=== PATIENT | female | born 1930 | race Caucasian/White ===

== ENCOUNTER 2017-02-16 14:40 | Inpatient (IN) | payer OTHER ==
[~2017-02-16] VITALS: Ht 154.9 cm; Wt 62.6 kg
[2017-02-16] MEDS ORDERED: IV NS 0.9% 1,000 ML BAG IV ONE ×2 (15:00→17:00)
--- NOTE | 2017-02-16 15:05 | NUR ---
ISABELLA FROM A BOARD AND CARE DT BRITNEY. AT FOR EVAL. NOTED WITH DARK GREEN LIQUID STOOL. FLEXISEAL IN PLACED- PER MD ORDER. IV ACCESS STARTED. BLOOD AND CULTURES DRAWN. SAFETY AND COMFORT MEASURES PROVIDED. WILL MONITOR. Addendum: 02/16/17 at 1727 by CHRIS PT CLEANED, CHANGED AND PLACED ON A NEW DIAPER PER PROTOCOL.
[2017-02-16 15:15] LABS: BASOPHILS % (AUTO) 0.1 % (0.0-2.0); EOSINOPHILS % (AUTO) 0.1 % (0.0-6.0); HEMATOCRIT 46 % (33-45); HEMOGLOBIN 14.8 g/dL (11.5-14.8); LYMPHOCYTES # (AUTO) 0.9 /CMM (0.8-4.8); LYMPHOCYTES % (AUTO) 5.5 % (20.0-44.0); MEAN CORPUSCULAR HEMOGLOBIN 30 PG (26.0-33.0); MEAN CORPUSCULAR HGB CONC 33 g/dl (31.0-36.0); MEAN CORPUSCULAR VOLUME 93 fL (82-100); MONOCYTES # (AUTO) 0.5 /CMM (0.1-1.30); MONOCYTES % (AUTO) 3.5 % (2.0-12.0); NEUTROPHILS # (AUTO) 14.3 /CMM (1.8-8.9); NEUTROPHILS % (AUTO) 90.8 % (43.0-81.0); PLATELET COUNT (AUTO) 367 /CMM (150-450); RDW COEFFICIENT OF VARIATION 14.5 (11.5-15.0); WHITE BLOOD COUNT (AUTO) 15.7 K/uL (4.3-11.0)
--- NOTE | 2017-02-16 15:15 | NUR ---
FAMILY MEMBER AT BS AND UPDATED WITH POC. WITH CODE STATUS UPDATE THAT PT IS DNR. FAMILY HAS NO DOCUMENTS ON HAND.
[2017-02-16 15:26] LABS: INR 1.13 (0.87-1.13); PROTHROMBIN TIME 11.7 SECS (9.5-12.7)
[2017-02-16 15:28] LABS: ALANINE AMINOTRANSFERASE 155 U/L (12-78); ALBUMIN 2.8 g/dL (3.4-5.0); ALKALINE PHOSPHATASE 122 U/L (46-116); ASPARTATE AMINOTRANSFERASE 164 U/L (15-37); BILIRUBIN,DIRECT 0.2 mg/dL (0.0-0.2); BILIRUBIN,TOTAL 0.8 mg/dL (0.2-1.0); CARBON DIOXIDE 19 mmol/L (21-32); CHLORIDE 101 mmol/L (98-107); GLUCOSE 88 mg/dL (74-106); SODIUM SERUM 137 mmol/L (136-145); TOTAL PROTEIN, SERUM 7.7 g/dL (6.4-8.2); UREA NITROGEN, BLOOD 53 mg/dL (7-18)
--- NOTE | 2017-02-16 15:31 | NUR ---
CALLED [facility]EDMAN MICHELLE ROJO IS FAXING PT FACE SHEET AND DNR PAPERWORK TO [facility]
[2017-02-16 15:32] LABS: POTASSIUM 6.4 mmol/L (3.5-5.1)
--- NOTE | 2017-02-16 15:37 | NUR ---
PT TAKEN TO CT.
[2017-02-16 15:45] LABS: BAND % (MANUAL) 48 % (0.0-5.0); LYMPHOCYTES % (MANUAL) 4 % (16-48); MONOCYTES % (MANUAL) 7 % (0-11.0); NEUTROPHILS % (MANUAL) 41 (42-76)
[2017-02-16] MEDS ORDERED: FERR-58 PO (15:47)
[2017-02-16] MEDS ORDERED: ASPI81TA2 PO (15:47)
[2017-02-16] MEDS ORDERED: ALEN70TA45 PO (15:47)
[2017-02-16] MEDS ORDERED: FURO-144 PO (15:47)
[2017-02-16] MEDS ORDERED: CALC1TAB PO (15:47)
[2017-02-16] MEDS ORDERED: BECL8.7A6 IH (15:47)
[2017-02-16] MEDS ORDERED: VENL50TA4 PO (15:47)
[2017-02-16] MEDS ORDERED: RANI150T8 PO (15:47)
[2017-02-16] MEDS ORDERED: LISI40TA4 PO (15:47)
[2017-02-16] MEDS ORDERED: METO25TA20 PO (15:47)
[2017-02-16] MEDS ORDERED: COMBIVENT RESPIMAT IH (15:47)
[2017-02-16] MEDS ORDERED: MULT-1168 PO (15:47)
[2017-02-16] MEDS ORDERED: DOCU-25 PO (15:47)
[2017-02-16] MEDS ORDERED: ATOR40TA PO (15:47)
[2017-02-16] MEDS ORDERED: ISOS10TA2 PO (15:47)
[2017-02-16] MEDS ORDERED: POTA10TA15 PO (15:47)
[2017-02-16] MEDS ORDERED: DEXTROSE 50%-WATER 50 ML DISP.SYRIN IV ONE (16:00)
[2017-02-16] MEDS ORDERED: SODIUM BICARBONATE SYR 50 MEQ/50 ML DISP.SYRIN IV ONE (16:00)
[2017-02-16] MEDS ORDERED: SODIUM POLYSTYRENE SULFONATE 15 G/60 ML BOTTLE RC ONE (16:00)
[2017-02-16] MEDS ORDERED: INSULIN REGULAR, HUMAN 100 UNIT/ML 10 ML VIAL IV ONE (16:00)
[2017-02-16] MEDS ORDERED: ALBUTEROL FS 2.5 MG/3 ML VIAL.NEB NEB ONE (16:00)
[2017-02-16] MEDS ORDERED: SODIUM POLYSTYRENE SULFONATE 15 G/60 ML BOTTLE ONE (16:03)
[2017-02-16] MEDS ORDERED: DEXTROSE 50%-WATER 50 ML DISP.SYRIN ONE (16:03)
[2017-02-16] MEDS ORDERED: INSULIN REGULAR, HUMAN 100 UNIT/ML 10 ML VIAL ONE (16:03)
--- NOTE | 2017-02-16 16:10 | NUR ---
UNBALE TO GET URINE SAMPLE- PT NOTED DRY. FC IN PLACE.
[2017-02-16] MEDS ORDERED: CEFTRIAXONE 1GM BAG (ER ONLY) 50 ML IV ONE ×2 (16:30→16:33)
--- NOTE | 2017-02-16 16:44 | NUR ---
CALLED [facility] FOR DOCTOR CONSULT
--- NOTE | 2017-02-16 16:50 | NUR ---
BUD CALLBACK PT ASSIGNED TO DR KINSEY @ [facility] PHONE NUMBER FOR REPORT: [facility] ETA [phone]
[2017-02-16] MEDS ORDERED: ALBUTEROL FS 2.5 MG/3 ML VIAL.NEB ONE (16:52)
--- NOTE | 2017-02-16 17:27 | NUR ---
REPORT GIVEN TO KARLA NOLEN FOR TELE ROOM 119
[2017-02-16] MEDS ORDERED: IV NS 0.9% 1,000 ML IV PRN ×2 (17:44→18:00)
--- NOTE | 2017-02-16 17:45 | NUR ---
RN ELENITA: got report from ER, PBA/nurse, Dx: AMS, DNR status
[2017-02-16] MEDS ORDERED: Z GUARD REMEDY 2 OZ OINT TP PRN (18:00)
[2017-02-16] MEDS ORDERED: HYDROCODONE/APAP 5/325MG 1 EACH TABLET PO PRN (18:00)
[2017-02-16] MEDS ORDERED: ACETAMINOPHEN 325 MG TABLET PO PRN (18:00)
[2017-02-16] MEDS ORDERED: MAGNESIUM HYDROXIDE 30 ML UDC PO PRN (18:00)
[2017-02-16] MEDS ORDERED: ONDANSETRON HCL/PF 4 MG/2 ML VIAL IVP PRN (18:00)
[2017-02-16] MEDS ORDERED: MAG HYDROX/AL HYDROX/SIMETH 30 ML UDC PO PRN (18:00)
[2017-02-16 18:15] VITALS: BP 99/33
--- NOTE | 2017-02-16 18:20 | NUR ---
RN ELENITA: got pt.from ER, pt.is obtunded, labored breathing, O2 sat. 90%, unable to check O2sat. well/pt.is cold, on 100%O2 NRBM, SR, SBP over 90, pt.family confirmed DNR status
[2017-02-16 18:30] VITALS: BP 148/90
[2017-02-16] MEDS ORDERED: IV NS 0.9% 1,000 ML IV SCH (18:30)
[2017-02-16] MEDS ORDERED: PIPERACILLIN /TAZOBACTAM 4.5 G in IV D5W 50 ML IV SCH (18:30)
--- NOTE | 2017-02-16 18:35 | NUR ---
RN ELENITA: pt.is obtunded, O2 sat. 82-92%, labored, SBP over 100, SR, RR 25-32, paged , will endorse next shift for ABG order?, pt.family confirmed DNR/DNI status
[2017-02-16 18:45] VITALS: BP 101/56
--- NOTE | 2017-02-16 18:45 | NUR ---
RN ELENITA: pt.is with open eyes, but no any tracking reaction, grimacing for pain stimuli, applied 2 more pulsoximetry sensors, low O2sat.82-85%, warmed: 90-92%, started to urinate, diarrhea, flexiseal tube in, needs ABG?, IVF?, MD was paged, max 100% O2 flow, POC needs to be discuss between MD and pt.family, charge nurse was notified
--- NOTE | 2017-02-16 19:00 | NUR ---
RN ELENITA: called back, spoke with charge nurse, pt.daughter, ordered: Ativan 1mg IV q2h prn
--- NOTE | 2017-02-16 19:10 | NUR ---
ELENITA/ABSORPTION PLANT OPERATOR RECEIVED REPORT FROM DAY NURSE, WHO HAD JUST RECEIVED THIS PT FROM ER WITHIN THE LAST 20MINUTES. RN WAS ABLE TO OBTAIN A DNR/DNI ORDER FROM MD, IT IS PT'S ADVANCE DIRECTIVES. ASSUME CARE FROM DAY NURSE NEW ADMISSION.
[2017-02-16] MEDS ORDERED: LORAZEPAM INJ 2 MG/ML VIAL IV PRN (19:30)
--- NOTE | 2017-02-16 19:33 | NUR ---
ELENITA/SENIOR PHYSICAL THERAPIST ABG WAS ORDERED STAT, HER O2 WAS 66% ON NON REBREATHER MASK AT 15 LITERS. ALSO TEMP AT THIS TIME WAS 97.2 AX. IJEOMA BAUER ORDERED TO INCREASE TEMP, SAW THAT LOWER EXTREMITIES WERE MOTTLED. ARMS AND NAIL BEDS WERE PURPLE/BLUE. AT THIS TIME NOTICED THAT A LACTIC ACID REPEAT WAS NOT DONE, ORDERED THIS DUE TO THE FACT LACTIC ACID WAS 9.6 IN ER AND DID NOT APPEAR TO REPEAT LAB. IV FLUIDS THAT WERE ORDERED WERE HUNG UP, NS @150ML/HR. ALSO STATED THE ANTIBIOTICS THAT WERE ORDER.
[2017-02-16] MEDS ORDERED: LORAZEPAM INJ 2 MG/ML VIAL ONE (19:47)
[2017-02-16 20:00] VITALS: BP 101/64
[2017-02-16] MEDS ORDERED: PIPERACILLIN /TAZOBACTAM 2.25 G in IV D5W 50 ML IV SCH (20:00)
--- NOTE | 2017-02-16 20:20 | NUR ---
ELENITA/ELECTRIC CUTTER OPERATOR LACTIC ACID CAME BACK AT 4.7, CHARGE AWARE ALSO UNABLE TO GET ABG. DUE TO POOR CIRCULATION AT THIS TIME. WILL MONITOR THIS PT.
--- NOTE | 2017-02-16 20:22 | NUR ---
multiple attempts from multiple therapist were unsuccessful with CALLUM SHI as well as Charge Nurse Ryder
[2017-02-16 20:48] LABS: CALCIUM, SERUM 8.6 mg/dL (8.5-10.1); CARBON DIOXIDE 22 mmol/L (21-32); CHLORIDE 110 mmol/L (98-107); SODIUM SERUM 142 mmol/L (136-145); UREA NITROGEN, BLOOD 51 mg/dL (7-18)
[2017-02-16 20:49] LABS: GLUCOSE 52 mg/dL (74-106)
[2017-02-16 20:58] LABS: CREATININE 2.8 mg/dL (0.6-1.3)
[2017-02-16] MEDS ORDERED: METRONIDAZOLE 500MG/ NS 100ML 500 MG in PREMIX 1 EA IV SCH (21:00)
--- NOTE | 2017-02-16 21:54 | NUR ---
PER MD MAYORGA PLACE PT ON BIPAP, RN PRATIK AND LB BELLO AWARE
[2017-02-16] MEDS ORDERED: ATORVASTATIN 40 MG TABLET PO SCH (22:00)
--- NOTE | 2017-02-16 23:12 | NUR ---
RN NOTE; LACTIC ACID RESULT INCREASED TO 11.5 ( EARLIER WAS 4.7 ) , RELAYED TO WARD SECRETARY DR MAYORGA , NO NEW ORDER AT THIS TIME . PRIMARY NURSE AWARE . WILL CONTINUE TO MONITOR .
[2017-02-17] VITALS: BP 120/58
--- NOTE | 2017-02-17 01:55 | NUR ---
ELENITA/REBECCA NOTICED THAT THE HEART RATE DROPPED FROM 80'S TO 40'S, CALLED DAUGHTER ABOUT THIS. SAID SHE'LL BE IN. PATTI [phone]
--- NOTE | 2017-02-17 02:25 | NUR ---
gertrudis/radio producer charge nurse came down to pronounce pt's . there is no heart rate capturing.
--- NOTE | 2017-02-17 03:15 | NUR ---
ELENITA/REINFORCING ROD LAYER [facility] WAS CALLED @ 0245, DECLINE CASE DUE TO AGE. [facility] WAS CALLED @0255, NOT A [facility] CASE AND RELEASED THE BODY. MELIDA FROM [facility] WAS CALLED TO BLADDER CHANGER BODY @ 0315 SAID THEY'LL BE HERE BY 0530. NURSING LABORER WHARF CALLED ABOUT EXPIATION. ALSO CALLED ABOUT PT'S .
--- NOTE | 2017-02-17 04:26 | NUR ---
ELENITA/NUCLEAR PHYSICS PROFESSOR POST MORTEM CARE GIVEN BODY READY FOR ERP IMPLEMENTATION CONSULTANT FROM [facility].
[2017-02-17] MEDS ORDERED: FERROUS SULFATE (325 MG) 325 MG/TAB TABLET PO SCH (09:00)
[2017-02-17] MEDS ORDERED: DOCUSATE SODIUM 100 MG CAPSULE PO SCH (09:00)
[2017-02-18] MEDS ORDERED: ASPIRIN 81 MG TAB.CHEW PO SCH (09:00)
== END 2017-02-17 02:25 | disposition expired | DRG 56 ==
LOC: ER 14:47 → TELE-TD 16:55
PROVIDERS: ADMIT Internal Medicine; ATTEND Internal Medicine
PROC: 5A09357 Assistance with Respiratory Ventilation, Less than 24 Consecutive Hours, Continuous Positive Airway Pressure (ICD-10-PCS; principal; 2017-02-16)
DX: I69.898 Other sequelae of other cerebrovascular disease (principal); G93.41 Metabolic encephalopathy; N17.0 Acute kidney failure with tubular necrosis; E87.2 Acidosis; I69.351 Hemiplegia and hemiparesis following cerebral infarction affecting right dominant side; E87.5 Hyperkalemia; E78.5 Hyperlipidemia, unspecified; I12.9 Hypertensive chronic kidney disease with stage 1 through stage 4 chronic kidney disease, or unspecified chronic kidney disease; N18.9 Chronic kidney disease, unspecified; K21.9 Gastro-esophageal reflux disease without esophagitis; Z66 Do not resuscitate; Z79.899 Other long term (current) drug therapy; D63.8 Anemia in other chronic diseases classified elsewhere; R74.0 Nonspecific elevation of levels of transaminase and lactic acid dehydrogenase [LDH]; I69.320 Aphasia following cerebral infarction; E86.0 Dehydration; F03.90 Unspecified dementia, unspecified severity, without behavioral disturbance, psychotic disturbance, mood disturbance, and anxiety; E87.8 Other disorders of electrolyte and fluid balance, not elsewhere classified
CPT/HCPCS: 36415; 70450-TC; 71010-TC; 80048-TC; 80076-TC; 83605-TC; 84484-TC; 85025-TC; 85730-TC; 87040-TC; 87081-TC; 87186-TC; A4216; A4606; J0696; J1815; J2060; J2543; J3490; J7030; J7060; Z7610